=== PATIENT | female | born 1995 | race Caucasian/White ===

== ENCOUNTER 2025-06-17 19:29 | Emergency (ER) | payer OTHER ==
[~2025-06-17] VITALS: Ht 172.7 cm; Wt 65.8 kg
[2025-06-17 19:31] VITALS: BP 117/79
[2025-06-17 20:19] LABS: PLATELET COUNT (AUTO) 315 K/uL (179-408); RED BLOOD CELL COUNT(AUTO) 4.77 MIL/uL (3.63-4.92); RED CELL DISTRIBUTION WIDTH 13.7 % (12.3-17.7); WHITE BLOOD COUNT (AUTO) 8.4 K/uL (3.8-11.8)
[2025-06-17] MEDS ORDERED: METOCLOPRAMIDE HCL 10 MG/2 ML VIAL ONE (20:21)
[2025-06-17] MEDS: METOCLOPRAMIDE HCL 10 MG/2 ML VIAL IV ONE (20:22)
[2025-06-17] MEDS: IV NORMAL SALINE 1000 ML BAG IV ONE (20:22)
[2025-06-17 20:28] LABS: *BILIRUBIN,URIN NEGATIVE (NEGATIVE); *BLOOD, URINE NEGATIVE (NEGATIVE); *CLARITY,URINE CLEAR (CLEAR); *COLOR,URINE YELLOW (YELLOW); *KETONES,URINE 2+ (NEGATIVE); *PROTEIN,URINE 1+ (NEGATIVE); *UROBILINOGEN,URINE 1.0 E.U./dl (NORMAL); LEUKOCYTE ESTERASE ,URINE NEGATIVE (NEGATIVE); NITRITE, URINE NEGATIVE (NEGATIVE); UGLUCOSE NEGATIVE (NEGATIVE)
[2025-06-17 20:31] LABS: *URINE HCG, QUAL NEGATIVE (NEGATIVE); CREATININE 0.8 mg/dL (0.6-1.3); SODIUM SERUM 140 mmol/L (136-145); UREA NITROGEN, BLOOD 15 mg/dL (7-18)
[2025-06-17 20:36] LABS: ASPARTATE AMINOTRANSFERASE 29 U/L (15-37); TOTAL PROTEIN, SERUM 8.4 g/dL (6.4-8.2)
[2025-06-17 20:38] LABS: SQUAMOUS EPITHELIAL CELL,UR MODERATE /HPF (NONE SEEN)
[2025-06-17 20:40] LABS: PREGNANCY TEST SERUM QUAN < 1 miul/L (0-6)
[2025-06-17] MEDS ORDERED: METO-295 PO (21:44)
[2025-06-17 21:59] VITALS: BP 117/79; O2SAT 96
[2025-06-18] MEDS ORDERED: METO-295 PO (23:09)
== END 2025-06-17 21:59 | disposition home or self-care (01) ==
LOC: ER 19:32
DX: R11.2 Nausea with vomiting, unspecified (principal); E86.0 Dehydration; R10.2 Pelvic and perineal pain
CPT/HCPCS: 36415; 83690; 84484; 84703; 85025; A4606; A4663; J2765; J7040